=== PATIENT | female | born 1960 | race Caucasian/White ===

== ENCOUNTER → 2024-10-28 08:03 | Outpatient (REF) | payer MEDICARE, OTHER, SELFPAY ==
[2024-10-28 10:22] LABS: % Basophils 0.9 % (0-2); % Eosinophils 3.1 % (0-6); % Lymphocytes 42.2 % (20.5-51.1); % Monocytes 7.8 % (1.7-9.3); Absolute Eosinophils 0.1 10^3/uL (0-0.7); Absolute Lymphocytes 1.9 10^3/uL (1.2-3.4); Absolute Monocytes 0.4 10^3/uL (0.1-0.6); Absolute Neutrophils 2.1 10^3/uL (1.4-6.5); Hematocrit 36.4 % (37.0-47.0); Hemoglobin 11.8 g/dL (12.0-16.0); Mean Corp Hgb Conc. 32.4 g/dL (33.0-37.0); Mean Corpuscular Volume 80.2 fL (81.0-99.0); Mean Platelet Volume 10.3 fL (7.4-10.4); Nucleated Red Blood Cells % 0 %; Platelet Count 223 10^3/uL (130-400); Red Blood Cell Count 4.54 10^6/uL (4.20-5.40); White Blood Cell Count 4.5 10^3/uL (4.8-10.8)
[2024-10-28 10:44] LABS: ALT (SGPT) 26 U/L (0-35); AST (SGOT) 22 U/L (14-36); Albumin 4.6 g/dl (3.5-5.0); Alkaline Phosphatase 40 U/L (38-126); Amylase 64 U/L (30-110); Blood Urea Nitrogen 22 mg/dl (7-17); Calcium 9.6 mg/dl (8.4-10.2); Carbon Dioxide 28 mmol/L (22-30); Chloride 107 mmol/L (98-107); Glucose 96 mg/dl (70-99); HDL Cholesterol 85 mg/dl; LDL Cholesterol, Calculated 199 mg/dl; Lipase 102 U/L (23-300); Potassium 4.3 mmol/L (3.5-5.1); Sodium 140 mmol/L (135-145); Total Cholesterol 296 mg/dl (50-199); Total Protein 7.4 g/dl (6.3-8.2); Triglyceride 63 mg/dl (10-149); Very Low Density Lipoprotein 12 mg/dl (0-30); eGFR > 60.00
[2024-10-28 11:02] LABS: Vitamin D, 25-OH*** 52.6 ng/mL (30-80)
[2024-10-28 11:16] LABS: TSH 3.26 uIU/ml (0.47-4.68)
[2024-10-28 11:20] LABS: Glycohemoglobin (HgbA1c) 5.7 % (4.0-5.6)
== END ==
LOC: HWRAD 08:03
PROVIDERS: ATTENDING PHYSICIAN Chiropractor; FAMILY PHYSICIAN Family Medicine
DX: E55.9 Vitamin D deficiency, unspecified (principal); E03.8 Other specified hypothyroidism; E78.2 Mixed hyperlipidemia; R73.01 Impaired fasting glucose; M81.0 Age-related osteoporosis without current pathological fracture; M53.2X7 Spinal instabilities, lumbosacral region; R10.2 Pelvic and perineal pain
CPT/HCPCS: 36415; 72110; 72170; 80053; 80061; 82150; 82306; 83036; 83690; 84443; 85025

== ENCOUNTER 2025-01-01 08:00 | Emergency (ER) | payer MEDICARE, OTHER, SELFPAY ==
[2025-01-01 08:05] VITALS: BP 124/77
[2025-01-01 08:12] VITALS: BP 124/77
[2025-01-01 08:21] LABS: Hematocrit 37.4 % (37.0-47.0); Hemoglobin 12.0 g/dL (12.0-16.0); Mean Corp Hgb Conc. 32.1 g/dL (33.0-37.0); Mean Corpuscular Volume 80.1 fL (81.0-99.0); Nucleated Red Blood Cells % 0 %; Platelet Count 232 10^3/uL (130-400); Red Cell Dist. Width 15.3 % (11.5-14.5)
[2025-01-01 08:31] LABS: INR 0.94; PT 12.9 Sec (11.4-14.6)
[2025-01-01] MEDS: NSS 500 IV (08:35)
--- NOTE | 2025-01-01 08:39 | ED.GENMED ---
History of Present Illness
General
Chief Complaint: Heart Rate Problem
Source: patient and ambulance crew
Exam Limitations: none
Time Seen by Provider: 01/01/25 08:01
Nursing documentation reviewed up to this point in time: agreed with
History of Present Illness
History of Present Illness:
64-year-old female with no reported chronic medical issues presents to the emergency department for evaluation of palpitations. Patient reports onset of symptoms when she woke up this morning around 3:30 Tri says that she waited hoping symptoms
would go away but they did not resolve and so she ultimately called EMS to bring her to the hospital. She denies any associated chest pain, shortness of breath, dizziness or any other acute complaints. She says she has never had similar symptoms
in the past. Per EMS EKG showed A-fib with RVR. She was given 500 cc of fluid and transported to the emergency room. She denies any known cardiac history. Denies excessive caffeine use or alcohol use or any drug use.
Past History
Past History
ED Past Medical History: None
ED Past Surgical History: Other (Cystocele/rectocele 09/2021)
Social History
Tobacco: Non-smoker
Personal:
Living: with family
Review of Systems
Review of Systems
All Other Systems: ROS reviewed and negative except as documented in HPI and ROS
Constitutional: Denies fever
Respiratory: Denies trouble breathing
Cardiac: Reports palpitations; Denies chest pain, diaphoresis or syncope
ABD/GI: Denies abdominal pain
: Denies flank pain
Musculoskeletal: Denies edema, neck pain or back pain
Neurological: Denies dizzy or headache
Phy Exam
Physical Exam
Physical Exam:
General: Awake, alert, oriented x3; no acute distress
Head: Normocephalic, atraumatic
Eyes: Conjunctiva normal
Throat: Airway intact, handling secretions
Neck: Trachea midline, no JVD
Lungs: Clear to auscultation bilaterally, no wheezing, rales, rhonchi
Heart: Tachycardia with irregularly irregular rhythm, no murmurs, gallops, or rubs
Abd: Soft, non distended, nontender
Neuro: No gross deficits
Extremities: No edema in extremities, equal pulses in all extremities
Scores
[id number] Score for Afib Stroke Risk
Age in Years (65=0, 65-74=1, >/=75=2): 65-74
Sex (Female=+1): Female
Congestive Heart Failure History (Yes=+1): No
Hypertension History (Yes=+1): No
Stroke/TIA/Thromboembolism History (Yes=+2): No
Vascular Disease History (Yes=+1): No
Diabetes Mellitus (Yes=+1): No
Score: 2
Anticoagulation Recommendations: Recommend anticoagulation (as validated in nonvalvular fib)
Heart Failure Risk
Heart Failure Risk Score: Not Applicable
Heart Score for Chest Pain Patients
STEMI patient?: Not applicable
Withdrawal Assessment of Alcohol
Withdrawal Assessment Completed?: Not applicable
Course
Orders/Labs/Results
Orders:
Orders
01/01/25 08:04
Electrocardiogram (*1) Urgent
Reason for Study: Chest Pain
Cardiac Monitoring- Treatment ONCE
EKG- Treatment ONCE
O2 Therapy [RESP] Urgent
Titrate/Wean O2 to maintain O2 sat greater than (%): 90
Special Instructions: Maintain sats >/=90%
Pulse Ox/spot Check [RESP] Urgent
Quantity: 1
Special Instructions: ON ROOM AIR
01/01/25 08:09
Complete Blood Count/With Diff Urgent
Comprehensive Metabolic Panel Urgent
Prothrombin Time Urgent
01/01/25 08:10
Free T4 Urgent
TSH Reflex To Free T4 Urgent
01/01/25 08:24
0.9% Sodium Chloride 500 ml [Nss] 500 ml IV BOLUS
Diltiazem HCl [Cardizem] 10 mg IV NOW STA
01/01/25 08:32
Electrocardiogram (*1) Urgent
Reason for Study: Atrial Fibrillation
EKG- Treatment ONCE
Abnormal Lab Results
01/01/25 01/01/25
08:09 08:10
MCV 80.1 L fL
(81.0-99.0)
MCH 25.7 L pg
(27.0-31.0)
MCHC 32.1 L g/dL
(33.0-37.0)
RDW 15.3 H %
(11.5-14.5)
Chloride 111 H mmol/L
(98-107)
BUN 22 H mg/dl
(7-17)
Glucose 100 H mg/dl
(70-99)
ALT 37 H U/L
(0-35)
TSH (Reflex) 4.70 H uIU/ml
(0.47-4.68)
01/01/25 08:09
01/01/25 08:09
Vital Signs
Initial and Last Documented VS:
Initial Vital Signs
Temp Pulse Resp BP Pulse Ox
36.4 C 119 18 124/77 96
01/01/25 08:05 01/01/25 08:05 01/01/25 08:05 01/01/25 08:05 01/01/25 08:05
Last Documented Vital Signs
Temp Pulse Resp BP Pulse Ox
36.4 C 79 10 124/77 96
01/01/25 08:05 01/01/25 08:30 01/01/25 08:30 01/01/25 08:12 01/01/25 08:42
MDM/Problems Addressed
Differential Diagnosis Includes:
Atrial fibrillation
MDM/Problems Addressed:
64-year-old female presents to the ER with palpitations, found to be in new onset A-fib with RVR. Vital signs significant for tachycardia but otherwise normal. Physical exam as above. Plan to place an IV check labs including a CBC and a CMP,
thyroid studies. Will provide fluids and diltiazem. Reassess after the above. Would not be a good cardioversion candidate given lack of anticoagulation and unclear chronicity of A-fib.
Patient converted to sinus rhythm prior to receiving any medications here. Continue to monitor on telemetry, labs pending.
Labs reviewed and no clinically significant abnormalities. Patient remains in sinus rhythm on monitor and is asymptomatic. At this point stable for discharge will start on Toprol and Eliquis ([id number] is 2). Patient previously seen by
Arnold for routine screening, will have her follow-up in the office with cardiology. Spoke about return precautions and all questions answered.
*Pulse Oximetry
SaO2: 96
Oxygen Mode of Delivery: Room air
Patient hypoxic: no (96%)
*EKG
Interpreted by ED Provider?: Yes
Heart Rate: 132
Rate: tachycardiac
Rhythm: a-fib and PVC's
[place]: normal axis
Interval: normal interval
QRS Pattern: normal QRS
Ischemia: no ischemia
*Critical Care Note
Total Time (30-74mins, 75-104mins- exclusive of procedures): Not Applicable
Data Reviewed
Source: patient and ambulance crew
ED Attending Note
-
Portions of this chart may have been created with voice recognition software.� Occasional wrong word or��sound alike� substitutions may have occurred due to the inherent limitations of voice recognition software.
Discharge Plan
Departure
Patient Disposition: Home (Routine Discharge)
Date of Disposition: 01/01/25
Time of Disposition: 09:29
Patient with high blood pressure during this ER visit?: No
Discharge Problem:
Atrial fibrillation
Instructions: Atrial Fibrillation (DC)
Prescriptions:
New
Eliquis 5 mg tablet
5 mg PO BID Qty: 60 0RF
metoprolol succinate [Toprol XL] 25 mg tablet extended release 24 hr
12.5 mg PO DAILY Qty: 30 0RF
Referrals:
William Barrett MD [Active, Cardiology] - Call in 1-3 days for appt
Fede King Jr., DO [Family Provider]
Activity Restrictions/Additional Instructions:
You should call yard operator today to schedule follow-up appointment as soon as possible. You should take medications as prescribed until you see the yard operator to discuss further treatment.
Thank you for visiting the Emergency Department at [facility].
1. Please schedule a follow up appointment as directed. Call first thing tomorrow morning to make an appointment.
2. If indicated, please take your medications as instructed and indicated on discharge paperwork.
3. If any of your symptoms do not improve, or persist, or become more severe within 6-12 hours, please return to the emergency department for further care.
4. Please return to the emergency department if you develop a headache, neck pain/stiffness, fever greater than 100.4F, chest pain, shortness of breath, persistent nausea, vomiting, slurred speech, difficulty walking, numbness/tingling, weakness,
signs of infection or any other symptoms that are worrisome to you.
Please call [phone] if you have any questions.
Interventions
Interventions:
*Risk Screen - Suicide Last Done: 01/01/25 08:05
*General Assessment Last Done: 01/01/25 08:05
*Neglect/Abuse Screening Last Done: 01/01/25 08:05
ED- Cardiac Assessment Last Done: 01/01/25 09:07
ED- Pulmonary Assessment Last Done: 01/01/25 09:07
Discharge Date and Time
Print Language: SENEGALESE
[2025-01-01 08:52] LABS: ALT (SGPT) 37 U/L (0-35); AST (SGOT) 29 U/L (14-36); Albumin 4.4 g/dl (3.5-5.0); Alkaline Phosphatase 44 U/L (38-126); Blood Urea Nitrogen 22 mg/dl (7-17); Calcium 8.7 mg/dl (8.4-10.2); Carbon Dioxide 25 mmol/L (22-30); Chloride 111 mmol/L (98-107); Glucose 100 mg/dl (70-99); Potassium 4.1 mmol/L (3.5-5.1); Sodium 142 mmol/L (135-145); Total Protein 7.0 g/dl (6.3-8.2); eGFR > 60.00
[2025-01-01 09:00] VITALS: BP 114/76
[2025-01-01] MEDS: ELIQUIS 5 MG PO (09:46)
[2025-01-01] MEDS: TOPROL XL 12.5 MG PO (09:51)
== END 2025-01-01 09:55 | disposition home or self-care (01) ==
LOC: EMR 08:00
PROVIDERS: EMERGENCY PHYSICIAN Emergency Medicine; FAMILY PHYSICIAN Family Medicine
DX: I48.91 Unspecified atrial fibrillation (principal)
CPT/HCPCS: 99284; 80053; 84439; 84443; 85025; 85610; 93005

== ENCOUNTER → 2025-03-17 08:15 | Outpatient (REF) | payer MEDICARE, OTHER, SELFPAY | LOC: HWRCS 08:15 | PROVIDERS: ATTENDING PHYSICIAN Internal Medicine Cardiovascular Disease; FAMILY PHYSICIAN Family Medicine | DX: I48.91 Unspecified atrial fibrillation (principal) | CPT/HCPCS: 93306 ==

== ENCOUNTER → 2025-03-19 14:04 | Outpatient (REF) | payer MEDICARE, OTHER, SELFPAY | LOC: DHSLP 14:04 | PROVIDERS: ATTENDING PHYSICIAN Internal Medicine Cardiovascular Disease; FAMILY PHYSICIAN Family Medicine | DX: G47.33 Obstructive sleep apnea (adult) (pediatric) (principal) | CPT/HCPCS: 95800 ==